=== PATIENT | male | born 1980 | race Caucasian/White ===

== ENCOUNTER 2018-06-24 00:45 | Emergency (ER) | payer OTHER ==
[~2018-06-24] VITALS: Ht 172.7 cm; Wt 96.4 kg
[2018-06-24 01:22] LABS: VENOUS BASE EXCESS 0.5 (-2.0-2.0); VENOUS O2 SATURATION 85.3 % (60.0-80.0); VENOUS PARTIAL PRESSURE CO2 39.9 mmHg (38.0-50.0); VENOUS PARTIAL PRESSURE O2 47.6 mmHg (30.0-50.0); VENOUS PH 7.415 UNITS (7.330-7.430); VENOUS STANDARD HCO3 24.6 MEQ/L; VENOUS TOTAL CO2 26.2 MEQ/L (24.0-28.0)
[2018-06-24 01:24] LABS: BASO # 0.1 10^3/uL (0.0-0.2); BASO % 1.3 % (0.0-1.0); EOS # 1.3 10^3/uL (0.0-0.50); EOS % 14.7 % (0.0-3.0); HEMATOCRIT 45.4 % (42.0-52.0); HEMOGLOBIN 15.9 g/dl (13.5-17.5); LYMPH # 2.9 10^3/uL (1.5-4.5); LYMPH % 33.7 % (24.0-44.0); MEAN CORPUSCULAR HEMOGLOBIN 30.6 pg (27.0-33.0); MEAN CORPUSCULAR VOLUME 87.5 fl (80.0-96.0); MONO # 0.7 10^3/uL (0.0-0.8); MONO % 8.5 % (0.0-5.0); NEUTROPHILS # 3.6 10^3/uL (1.8-7.7); NEUTROPHILS % 41.7 % (36.0-66.0); PLATELET COUNT, AUTOMATED 229 10^3/uL (150-450); RED BLOOD COUNT 5.19 10^6/uL (4.30-6.10); WHITE BLOOD COUNT 8.5 10^3/uL (4.0-10.0)
[2018-06-24 01:40] LABS: INR 0.99; PROTHROMBIN TIME 13.2 SECONDS (12.1-14.4)
[2018-06-24] MEDS ORDERED: IPRATROPIUM 0.5MG/ALBUTEROL 2.5MG INH SOL UD 3ML (DUONEB)(J7620) NEB ONE (01:45)
[2018-06-24 01:49] LABS: ALBUMIN 3.9 GM/DL (3.2-5.2); ALT/SGPT 19 U/L (12-78); BILIRUBIN,DIRECT < 0.1 MG/DL (0.0-0.2); BILIRUBIN,TOTAL 0.3 MG/DL (0.2-1.0); BLOOD UREA NITROGEN 14 MG/DL (7-18); CALCIUM LEVEL 8.2 MG/DL (8.5-10.1); CARBON DIOXIDE LEVEL 25 MEQ/L (21-32); CHLORIDE LEVEL 110 MEQ/L (98-107); CPK CREATINE PHOSPHOKINASE 199 U/L (39-308); CREATININE FOR GFR 1.01 MG/DL (0.70-1.30); GLOMERULAR FILTRATION RATE > 60.0 (>60); GLUCOSE, FASTING 103 MG/DL (70-100); MB/CK RELATIVE INDEX 0.95 (< OR =4); NT-PRO BNP 53 PG/ML (<125); POTASSIUM SERUM 3.6 MEQ/L (3.5-5.1); SODIUM LEVEL 143 MEQ/L (136-145); TOTAL PROTEIN 7.2 GM/DL (6.4-8.2); TROPONIN I < 0.02 NG/ML (< 0.10)
[2018-06-24 02:01] LABS: INFLUENZA A AMPLIFICATION NEGATIVE (NEGATIVE); INFLUENZA B AMPLIFICATION NEGATIVE (NEGATIVE)
[2018-06-24] MEDS ORDERED: PRED20TA PO (02:48)
[2018-06-24] MEDS ORDERED: ALBUTEROL 90 MCG/ACT 8GM HFA INHALER INH ONE (03:00)
[2018-06-24] MEDS ORDERED: predniSONE 20 MG TAB PO ONE (03:00)
[2018-06-24 03:37] VITALS: BP 132/77
--- NOTE | 2018-06-24 04:16 | REP ---
Clinical: Shortness of breath . Comparison: None . Technique: PA and lateral. Findings: The mediastinum and cardiac silhouette are normal. The lung mendes are clear and without acute consolidation, effusion, or pneumothorax. The skeletal structures are intact and normal. Impression: 1. No acute cardiopulmonary process. Electronically Signed by Gwyn Baker MD 06/24/2018 04:07 A
--- NOTE | 2018-06-24 21:51 | ECGEPIP ---
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
== END 2018-06-24 04:05 | disposition home or self-care (01) ==
LOC: M ED 00:45
DX: J45.909 Unspecified asthma, uncomplicated (principal); Z82.5 Family history of asthma and other chronic lower respiratory diseases

== ENCOUNTER → 2018-07-05 | Outpatient (CLI) | payer OTHER ==
[~2018-07-05] MED LIST: PRED20TA PO
--- NOTE | 2018-07-05 17:51 | REP ---
CHEST, TWO VIEWS: COMPARISON: 06/24/2018 There is no evidence of acute infiltrate. No pleural effusion is seen. The heart is normal in size. The mediastinal silhouette is unremarkable. The visualized osseous structures are intact. IMPRESSION: No acute pulmonary disease. Electronically Signed by Coy Rockwell MD 07/05/2018 08:02 P
== END ==
LOC: M LRY 15:17
PROVIDERS: ATTEND Nurse Practitioner Family
DX: R06.02 Shortness of breath (principal)
CPT/HCPCS: 71046; G0463

== ENCOUNTER 2021-01-11 11:46 | Emergency (ER) | payer OTHER ==
[~2021-01-11] VITALS: Ht 167.6 cm; Wt 96.2 kg
[2021-01-11 11:47] VITALS: BP 137/87
[2021-01-11 15:20] LABS: RSV AMPLIFICATION NEGATIVE (NEGATIVE)
== END 2021-01-11 16:40 | disposition home or self-care (01) ==
LOC: M ED 11:46
DX: J06.9 Acute upper respiratory infection, unspecified (principal); I10 Essential (primary) hypertension